=== PATIENT | male | born 1965 | race Caucasian/White ===

== ENCOUNTER 2017-12-07 17:11 | Emergency (ER) | payer OTHER ==
--- NOTE | 2017-12-07 19:27 | ED ---
GI/ HPI - HPI Summary HPI Summary: This patient is a 52 year old M presenting to [facility] accompanied by with a chief complaint of hematuria with bright red blood that began 2 days ago. The patient rates the pain 0/10 in severity. Symptoms aggravated by nothing. Symptoms alleviated by nothing. Patient reports swelling in the left testicle ( began 4 to 6 weeks ago), slight fever, slight abd swelling, and low back pain. Patient denies abd pain, headache, blurred vision, ear ache, sore throat, CP, SOB, bilateral LE edema, bruising, anxiety, and depression. Patient reports he made an appointment with urology at [place] yesterday, and he was diagnosed with epididymitis and hematuria. Patient denies having a testicular ultrasound. He reports that he began a course of antibiotics yesterday. - History of Current Complaint Chief Complaint: EDUrogenitalProblems Stated Complaint: BLOOD IN URINE Hx Obtained From: Patient Onset/Duration: Started Days Ago, Still Present Timing: Constant Severity: Mild Current Severity: Mild Pain Intensity: 0 Associated Signs and Symptoms: Positive: Other: - Positive slight fever, slight abd swelling, and low back pain. Negative abd pain, headache, blurred vision, ear ache, sore throat, CP, SOB, bilateral LE edema, bruising, anxiety, and depression. Additional Signs & Symptoms: Positive: Penile Swelling Aggravating Factor(s): Nothing Alleviating Factor(s): Nothing - Allergy/Home Medications Allergies/Adverse Reactions: Allergies Allergy/AdvReac Type Severity Reaction Status Date / Time No Known Allergies Allergy Verified 12/07/17 17:28 PMH/Surg Hx/FS Hx/Imm Hx Previously Healthy: Yes Endocrine/Hematology History: Denies: Hx Diabetes Cardiovascular History: Denies: Hx Myocardial Infarction - Surgical History Surgery Procedure, Year, and Place: Shoulder. Ankle. Umbilical hernia repair Hx Anesthesia Reactions: No Infectious Disease History: No Infectious Disease History: Denies: Traveled Outside the [place] in Last 30 Days - Family History Known Family History: Positive: Cardiac Disease, Diabetes - Social History Occupation: Employed Full-time Lives: With Family Alcohol Use: None Hx Substance Use: No Substance Use Type: Reports: None Hx Tobacco Use: No Smoking Status (MU): Never Smoked Tobacco Review of Systems Positive: Fever Negative: Blurred Vision, Diplopia Negative: Sore Throat, Ear Ache Negative: Chest Pain Negative: Shortness Of Breath Positive: Other - Positive slight abd swelling Genitourinary: Other - Positive left testicular swelling Positive: hematuria Positive: Other - Positive low back pain. Negative bilateral LE edema Negative: Bruising Negative: Headache Negative: Anxious, Depressed All Other Systems Reviewed And Are Negative: No Physical Exam - Summary Physical Exam Summary: Appearance: Alert, conversive, nontoxic appearing Skin: Warm, dry, no mottling, no rashes, no contusions HEENT: EOMI, PERRL, moist mucous membranes Neck: No masses on the neck, supple Respiratory: Clear to auscultation, breath sounds present, no rales, no rhonchi , no wheezes Cardiovascular: RRR, pulses are symmetrical in both lower and upper extremities Abdomen: Soft, non-tender Bowel Sounds: Present Musculoskeletal: No CVA tenderness, no obvious deformity, moving all extremities in a grossly normal manner Neurological: A&Ox3, CN II-XII Intact, moving all extremities symmetrically Psychiatric: Normal affect and mood Triage Information Reviewed: Yes Vital Signs On Initial Exam: Initial Vitals Temp Pulse Resp BP Pulse Ox 97.4 F 79 16 177/102 98 12/07/17 17:25 12/07/17 17:25 12/07/17 17:25 12/07/17 17:25 12/07/17 17:25 Vital Signs Reviewed: Yes Diagnostics - Vital Signs Vital Signs Temp Pulse Resp BP Pulse Ox 12/07/17 17:25 97.4 F 79 16 177/102 98 - Laboratory Result Diagrams: 12/07/17 19:56 12/07/17 19:56 Lab Statement: Any lab studies that have been ordered have been reviewed, and results considered in the medical decision making process. - Additional Comments Diagnostic Additional Comments: Testicular US reveals, per radiologist, bilateral varicoceles and probable left inguinal hernia. ED physician has reviewed this radiology report. Abdomen/Bladder US reveals, per radiologist, bladder wall thickening. Acute/ chronic cystitis. Correlation with UA is recommended. Unremarkable bilateral kidneys. Mildly enlarged prostate. ED physician has reviewed this radiology report. Re-Evaluation - Re-Evaluation First Eval Re-Evaluation Time: 23:15 Change: Unchanged Comment: Discussed results and plan of care with the patient. Recommended he continue his antibiotics GIGU Course/Dx - Course Course Of Treatment: This patient is a 52 year old M [facility] by with a chief complaint of hematuria with bright red blood that began 2 days ago. Patient reports swelling in the left testicle (began 4 to 6 weeks ago). Patient reports he made an appointment with urology at [place] yesterday, and he was diagnosed with epididymitis and hematuria. Physical Exam Findings: Nml. Testicular US reveals, per radiologist, bilateral varicoceles and probable left inguinal hernia. Abdomen/Bladder US reveals, per radiologist, bladder wall thickening. Acute/chronic cystitis. Correlation with UA is recommended. Unremarkable bilateral kidneys. Mildly enlarged prostate. Bloodwork and UA obtained. Patient will be discharged with follow up from PCP and urology. The patient is agreeable with this plan. - Diagnoses Provider Diagnoses: UTI (urinary tract infection) Discharge - Sign-Out/Discharge Documenting (check all that apply): Patient Departure - Discharge home - Discharge Plan Condition: Stable Disposition: HOME Patient Education Materials: Urinary Tract Infection in Men (ED) Referrals: Alexander Ferrell MD [Primary Care Provider] - Rubens Godinez MD [Medical Doctor] - Additional Instructions: return if worse or any new symptoms. Take Tylenol or motrin for pain or discomfort. Please call urology for a follow pu appt. Take the antibiotic that was prescribed to you for your bladder infection. Attestations Scribe Attestation: This is jada Carr documenting for Rachel Jacques MD. User Type: Provider with Scribe Provider Attestation: The documentation recorded by the scribe accurately reflects the service I personally performed and the decisions made by me.
[2017-12-07 20:10] LABS: ABS Basophils 0 10^3/ul (0-0.2); ABS Eosinophils 0.1 10^3/ul (0-0.6); ABS Lymphocytes 1.3 10^3/ul (1.0-4.8); ABS Monocytes 0.6 10^3/ul (0-0.8); ABS Neutrophils 5.8 10^3/ul (1.5-7.7); ABS Nucleated RBC 0 10^3/ul; Eosinophil % 0.7 % (0-6); Hematocrit 42 % (42-52); Hemoglobin 14.8 g/dl (14.0-18.0); Lymphocyte % 16.9 % (25-47); Mean Corpuscular HGB Conc 35 g/dl (31-36); Mean Corpuscular Hemoglobin 32 pg (27-31); Mean Corpuscular Volume 91 fL (80-94); Nucleated Red Blood Cells % 0; Platelet Count 188 10^3/ul (150-450); Red Blood Count 4.63 10^6/ul (4.00-5.40); Red Cell Distribution Width 13 % (10.5-15); White Blood Count 7.8 10^3/ul (3.5-10.8)
[2017-12-07 20:21] LABS: EGFR Non-African American 76.4 (>60)
--- NOTE | 2017-12-07 22:28 | RAD ---
EXAM: US Scrotum CLINICAL HISTORY: 52 years old, male; Signs and symptoms; Swelling, testicles or scrotum; Patient HX: Lt superior testicle swelling TECHNIQUE: Real-time ultrasound of the scrotum with color Doppler and image documentation. COMPARISON: No relevant prior studies available. FINDINGS: Right testicle: Right testicle measures 5.1 x 2.5 x3.4 cm. No mass. No torsion. Normal vascular flow. Left testicle: Left testes measures 4.4 x 2.6 x 3.6 cm. No mass. No torsion. Normal vascular flow. Epididymides: Unremarkable. Scrotum: Bilateral varicoceles. Probable left inguinal hernia. IMPRESSION: Bilateral varicoceles. Probable left inguinal hernia. R0
--- NOTE | 2017-12-07 22:40 | RAD ---
EXAM: US renal and bladder. CLINICAL HISTORY: 52 years old, male; Signs and symptoms; Other: Hematuria TECHNIQUE: Real-time ultrasound of the bilateral kidneys and bladder with image documentation. COMPARISON: No relevant prior studies available. FINDINGS: Right kidney: Right kidney measures 11.9 x 6.0 x 5.7 cm. Normal echogenicity. Normal vascular flow. No hydronephrosis. No stones. Left kidney: Left kidney measures 12.0 x 6.4 x 6.0 cm. Normal echogenicity. Normal vascular flow. No hydronephrosis. No stones. Bladder: The prevoid bladder volume measures 599 mL with complete evacuation. The bladder wall is thickened and measures 3 mm when distended and 1.7 cm when collapsed. Bilateral urinary jets were identified. Prostate measures 3.8 x 3.3 x 5.2 cm with a volume of 34.9 and is mildly enlarged. IMPRESSION: Bladder wall thickening. Acute/chronic cystitis. Correlation with UA is recommended. Unremarkable bilateral kidneys. Mildly enlarged prostate. R0
[2017-12-07 22:57] LABS: Urine Appearance Cloudy; Urine Blood 3+ (Negative); Urine Color Yellow; Urine Ketones Negative (Negative); Urine Protein 1+(30 mg/dL) (Negative); Urine Red Blood Cell 3+(>10/hpf) (Absent); Urine Specific Gravity 1.005 (1.010-1.030); Urine Urobilinogen Negative (Negative); Urine White Blood Cell Trace(0-5/hpf) (Absent)
[2017-12-07 23:26] VITALS: BP 133/96
== END 2017-12-07 23:36 | disposition home or self-care (01) ==
LOC: ED 17:11
DX: N30.01 Acute cystitis with hematuria (principal); N30.21 Other chronic cystitis with hematuria; N40.0 Benign prostatic hyperplasia without lower urinary tract symptoms
CPT/HCPCS: 36415; 76770; 76870; 80053; 81003; 81015; 85025; 87086; 99282